=== PATIENT | female | born 1965 ===

== ENCOUNTER 2024-03-29 05:30 | Day surgery (SDC) | payer OTHER ==
[2024-03-23 09:01] VITALS: BP 140/84
[2024-03-23 09:06] LABS: HEMATOCRIT 37.6 % (36.0-45.00); HEMOGLOBIN 12.3 g/dL (12.0-15.00); MEAN CORPUSCULAR HEMOGLOBIN 22.5 pg (27.00-32.0); MEAN CORPUSCULAR HGB CONC 32.7 g/dl (32.0-36.0); RED BLOOD COUNT 5.46 M/uL (4.00-6.00)
[2024-03-23 09:07] LABS: MEAN CELL VOLUME 68.8 fL (80.00-100.00); PLATELET COUNT 581 K/uL (150-450)
[2024-03-23 09:17] LABS: PH,URINE 5.5 (5.0-8.0); URINE APPEARANCE Clear; URINE BILIRRUBIN Negative (NEGATIVE); URINE BLOOD Moderate; URINE COLOR Yellow; URINE KETONE Negative (NEGATIVE); URINE LEUKOCYTE Negative; URINE NITRATE Negative; URINE PROTEIN Trace (NEGATIVE); URINE UROBILINOGEN 0.2 E.U./dl
[2024-03-23 09:22] LABS: URINE BACTERIA 371.9 uL (0.0-1933); URINE EPITHELIAL CELLS 13.9 uL (0.0-38.8); URINE RBC 155.3 uL (0.0-20.8); URINE WBC 6.6 uL (0.0-23.2)
[2024-03-23 09:30] LABS: INR 1.03; PARTIAL THROMBOPLASTIN TIME 26.2 SECONDS (22.0-34.0); PROTHROMBIN TIME 11.2 SECONDS (9.0-11.5); URINE CAST 0.44 uL (0.0-1.40); URINE GLUCOSE >=1000 MG/DL (NEGATIVE)
[2024-03-23 10:12] LABS: ALBUMIN 3.6 gm/dL (3.4-5.0); BILIRUBIN TOTAL 0.46 mg/dL (0.3-1.2); CALCIUM 9.2 mg/dL (8.5-10.1); CREATININE SERUM 0.68 mg/dL (0.55-1.02); GFR 89.18; POTASSIUM 4.59 mEq/L (3.5-5.1); TOTAL PROTEIN 7.6 gm/dL (6.4-8.2)
[~2024-03-29] VITALS: Ht 162.6 cm; Wt 84.4 kg
[~2024-03-29 05:30] MED LIST: FARXIGA5 MG PO; LIPITOR20 MG PO; METFORMIN HCL1000 M2 PO; NORETHIND-ETH1 EAC1 PO; VALSARTAN160 MG PO
[2024-03-29] MEDS ORDERED: CEFAZOLIN SODIUM 1,000 MG VIAL ONE (06:49)
[2024-03-29] MEDS ORDERED: CHLORHEXIDINE GLUCONATE 120 ML BOTTLE TOP ONE (07:38)
[2024-03-29] MEDS ORDERED: DOXYCYCLINE HY100 MG PO (08:52)
[2024-03-29] MEDS ORDERED: IBU600 MG PO (08:53)
[2024-03-29] MEDS ORDERED: MORPHINE SULFATE 4 MG/ML VIAL IV ONE (10:20)
== END 2024-03-29 14:05 | disposition home or self-care (01) ==
LOC: CIR.AMB 05:30
PROVIDERS: ATTEND Obstetrics & Gynecology
DX: D25.0 Submucous leiomyoma of uterus (principal); N95.0 Postmenopausal bleeding; N84.0 Polyp of corpus uteri; N80.03 Adenomyosis of the uterus